=== PATIENT | male | born 1960 | race Caucasian/White ===

== ENCOUNTER 2020-12-20 11:22 | Inpatient (IN) | payer BC ==
[~2020-12-20] VITALS: Ht 177.8 cm; Wt 108.9 kg
[~2020-12-20 11:22] MED LIST: MEDROL4 MG PO; XELJANZ XR PO; ZITHROMAX250 MG PO
[2020-12-20 13:11] LABS: HEMOGLOBIN 14.2 gm/dl (14.0-17.5); RED BLOOD COUNT 4.91 M/UL (4.20-5.50)
[2020-12-20 13:35] LABS: BUN/CREATININE RATIO 18 (0-10)
[2020-12-20] MEDS ORDERED: LOSARTAN POTAS100 MG PO (16:28)
[2020-12-20] MEDS ORDERED: HYDRALAZINE HCL25 MG PO (16:28)
[2020-12-20] MEDS ORDERED: GLUCOPHAGE850 MG PO (16:28)
[2020-12-20] MEDS ORDERED: ASPIRIN EC81 MG PO (16:29)
[2020-12-20] MEDS ORDERED: HYGROTON TAB 2525 MG PO (16:29)
[2020-12-20] MEDS ORDERED: OMEGA 3 1,0001 EACH PO (16:30)
[2020-12-20] MEDS ORDERED: PROTONIX40 MG PO (16:30)
[2020-12-20] MEDS ORDERED: TRICOR145 MG PO (16:30)
[2020-12-20] MEDS ORDERED: TESSALON PERLE100 MG PO (16:30)
[2020-12-20] MEDS ORDERED: GLIPIZIDE XL2.5 MG PO (16:51)
[2020-12-20] MEDS ORDERED: NORVASC10 MG PO (17:00)
[2020-12-20] MEDS ORDERED: MOBIC15 MG PO (17:02)
[2020-12-21 06:33] LABS: HEMOGLOBIN 13.3 gm/dl (14.0-17.5); RED BLOOD COUNT 4.65 M/UL (4.20-5.50); WHITE BLOOD COUNT 5.6 K/UL (4.5-11.0)
[2020-12-21 07:01] LABS: BUN/CREATININE RATIO 18 (0-10)
[2020-12-22 06:50] LABS: BUN/CREATININE RATIO 28 (0-10)
[2020-12-23 04:39] LABS: BUN/CREATININE RATIO 28 (0-10)
[2020-12-24 04:04] LABS: BUN/CREATININE RATIO 28 (0-10)
[2020-12-25] MEDS ORDERED: MEDROL4 MG PO (11:07)
[2020-12-25] MEDS ORDERED: OMNICEF 300 MG300 MG PO (11:08)
== END 2020-12-25 12:27 | disposition home or self-care (01) | DRG 177 ==
LOC: ER1 11:22 → CDU 15:53 → M/S 15:53
PROVIDERS: Physician Assistant Medical; ADMIT Internal Medicine
PROC: 8E0ZXY6 Isolation (ICD-10-PCS; principal; 2020-12-20)
PROC: XW033E5 Introduction of Remdesivir Anti-infective into Peripheral Vein, Percutaneous Approach, New Technology Group 5 (ICD-10-PCS; 2020-12-20)
PROC: XW13325 Transfusion of Convalescent Plasma (Nonautologous) into Peripheral Vein, Percutaneous Approach, New Technology Group 5 (ICD-10-PCS; 2020-12-20)
DX: U07.1 COVID-19 (principal); J12.82 Pneumonia due to coronavirus disease 2019; J96.01 Acute respiratory failure with hypoxia; D84.9 Immunodeficiency, unspecified; E66.01 Morbid (severe) obesity due to excess calories; G47.30 Sleep apnea, unspecified; E11.65 Type 2 diabetes mellitus with hyperglycemia; E87.6 Hypokalemia; I10 Essential (primary) hypertension; Z79.899 Other long term (current) drug therapy; Z79.82 Long term (current) use of aspirin; Z68.34 Body mass index [BMI] 34.0-34.9, adult
CPT/HCPCS: 36415; 36600; 80048; 80053; 82803; 82962; 83036; 83605; 85025; 85379; 85610; 86140; 86900; 86901; 86927; 87040; 87081; 96365; 96366; 96367; 96372; 96375; 96376; 99285; J1100; J1650; J2185; J2405; J7030; Q9967; U0002